=== PATIENT | female | born 1975 | race Caucasian/White ===

== ENCOUNTER → 2017-01-14 | Outpatient (CLI) | payer OTHER, MEDICAID ==
[~2017-01-14] MED LIST: ONDANSETRON HCL4 M2 PO; XANAX1 MG PO; ZOFRAN4 MG PO
[2017-01-14 16:48] LABS: ABSOLUTE BASOPHILS 0.1 thou/uL (0.0-0.2); ABSOLUTE LYMPHOCYTES 1.4 thou/uL (0.8-5.3); ABSOLUTE MONOCYTES 0.4 thou/uL (0.0-1.2); ABSOLUTE NEUTROPHILS 3.1 thou/uL (1.6-8.1); BASOPHILS 2.1 %; EOSINOPHILS 0.3 %; HEMATOCRIT 40.8 % (37.0-47.0); HEMOGLOBIN 14.1 gm/dL (12.0-15.0); LYMPHOCYTES 27.5 %; MCH 36.9 pg (26.0-34.0); MCHC 34.5 g/dL (28.0-37.0); MCV 106.9 fL (80.0-100.0); MONOCYTES 8.7 %; MPV 7.2 fl. (7.2-11.1); NUCLEATED RBCS 0 /100WBC; PLATELET COUNT* 131 thou/uL (150-400); POLYS 61.4 %; RBC 3.82 mil/uL (4.20-5.00); RDW-CV 13.3 % (10.5-14.5)
[2017-01-14 16:54] LABS: AMP/METHAMP Negative (Negative); BARBITURATES Negative (Negative); BENZODIAZEPINES POSITIVE (Negative); COCAINE Negative (Negative); METHADONE Negative (Negative); OPIATES Negative (Negative); PCP Negative (Negative); THC Negative (Negative)
[2017-01-14 17:10] LABS: ALBUMIN 3.9 g/dL (3.4-5.0); ALKALINE PHOSPHATASE 127 U/L (46-116); ANION GAP 13 mmol/L (7-16); BUN 5 mg/dL (7-18); CHLORIDE 100 mmol/L (98-107); CHOLESTEROL 292 mg/dL (<200); CO2 26 mmol/L (21-32); CREATININE 0.4 mg/dL (0.6-1.3); GLUCOSE 110 mg/dL (70-99); HDL CHOLESTEROL 187 mg/dL (>40); LDL CHOLESTEROL 37 mg/dL (<100); MAGNESIUM 2.1 mg/dL (1.8-2.4); PHOSPHORUS* 3.7 mg/dL (2.5-4.9); POTASSIUM 3.7 mmol/L (3.5-5.1); SGOT 119 U/L (15-37); SGPT 47 U/L (30-65); SODIUM 139 mmol/L (136-145); TC:HDL 1.6 Ratio (Not establshd); TOTAL BILIRUBIN 0.5 mg/dL (<0.1-1.0); TOTAL PROTEIN 7.3 g/dL (6.4-8.2); TRIGLYCERIDE 344 mg/dL (<150); VLDL 69 mg/dL (<40)
[2017-01-14 17:11] LABS: SERUM ASSESSMENT CLEAR
== END ==
LOC: M.LAB 16:10
PROVIDERS: Nurse Practitioner Family
DX: S09.90XD Unspecified injury of head, subsequent encounter (principal); F41.9 Anxiety disorder, unspecified; I10 Essential (primary) hypertension; R25.1 Tremor, unspecified; X58.XXXD Exposure to other specified factors, subsequent encounter

== ENCOUNTER 2017-02-14 12:58 | Emergency (ER) | payer OTHER, MEDICAID ==
[~2017-02-14] VITALS: Ht 170.2 cm; Wt 49.9 kg
[~2017-02-14 12:58] MED LIST changes: -ONDANSETRON HCL4 M2 PO
[2017-02-14] MEDS ORDERED: ONDANSETRON HCL4 M2 PO (13:28)
[2017-02-14 13:47] LABS: URINE COLOR YELLOW
[2017-02-14 13:48] LABS: URINE BILIRUBIN NEGATIVE (Negative); URINE BLOOD 2+ (Negative); URINE GLUCOSE-RANDOM NEGATIVE (Negative); URINE KETONES NEGATIVE (Negative); URINE LEUKOCYTES NEGATIVE (Negative); URINE NITRITE POSITIVE (Negative); URINE PROTEIN NEGATIVE (Negative); URINE UROBILINOGEN 0.2 E.U./dl (0.2-1.0)
[2017-02-14 13:49] LABS: URINE CLARITY SL CLOUDY
[2017-02-14 13:54] LABS: AMP/METHAMP Negative (Negative); BARBITURATES Negative (Negative); BENZODIAZEPINES Negative (Negative); COCAINE Negative (Negative); METHADONE Negative (Negative); OPIATES Negative (Negative); PCP Negative (Negative); THC Negative (Negative)
[2017-02-14 14:02] LABS: ABSOLUTE LYMPHOCYTES 0.8 thou/uL (0.8-5.3); ABSOLUTE MONOCYTES 0.3 thou/uL (0.0-1.2); ABSOLUTE NEUTROPHILS 1.7 thou/uL (1.6-8.1); BASOPHILS 1.4 %; EOSINOPHILS 0.7 %; HEMATOCRIT 39.7 % (37.0-47.0); HEMOGLOBIN 13.7 gm/dL (12.0-15.0); LYMPHOCYTES 29.7 %; MCH 37.1 pg (26.0-34.0); MCHC 34.5 g/dL (28.0-37.0); MCV 107.6 fL (80.0-100.0); MONOCYTES 9.8 %; MPV 7.6 fl. (7.2-11.1); NUCLEATED RBCS 0 /100WBC; PLATELET COUNT* 135 thou/uL (150-400); POLYS 58.4 %; RBC 3.69 mil/uL (4.20-5.00); RDW-CV 12.6 % (10.5-14.5); WBC 2.8 thou/uL (4.0-11.0)
[2017-02-14 14:08] LABS: ANION GAP 9 mmol/L (7-16); BUN 4 mg/dL (7-18); CHLORIDE 104 mmol/L (98-107); CO2 28 mmol/L (21-32); CREATININE 0.5 mg/dL (0.6-1.3); GLUCOSE 126 mg/dL (70-99); POTASSIUM 3.8 mmol/L (3.5-5.1); SODIUM 141 mmol/L (136-145)
[2017-02-14 14:15] LABS: ALBUMIN 3.5 g/dL (3.4-5.0); ALKALINE PHOSPHATASE 150 U/L (46-116); LIPASE 263 U/L (73-393); SGOT 211 U/L (15-37); SGPT 63 U/L (30-65); TOTAL BILIRUBIN 0.3 mg/dL (<0.1-1.0); TOTAL PROTEIN 7.3 g/dL (6.4-8.2); TROPONIN-I LEVEL <0.06 ng/mL (<0.06)
[2017-02-14 14:35] VITALS: BP 123/87
[2017-02-14 14:39] LABS: BACTERIA >30 Many /HPF (None Seen); CASTS None Seen /LPF (None Seen); CRYSTALS None Seen /LPF (None Seen); SQUAMOUS 4-10 Moderate /LPF (0-3); URINE RBC 0-2 Rare /HPF (0-2); URINE WBC 0-5 Rare /HPF (0-5)
== END 2017-02-14 15:07 | disposition home or self-care (01) ==
LOC: M.ERS 12:58
PROVIDERS: Physician Assistant
DX: F10.920 Alcohol use, unspecified with intoxication, uncomplicated (principal); D72.819 Decreased white blood cell count, unspecified; R11.2 Nausea with vomiting, unspecified; F41.9 Anxiety disorder, unspecified; Z88.0 Allergy status to penicillin

== ENCOUNTER → 2018-06-25 | Outpatient (CLI) | payer OTHER, MEDICAID ==
[~2018-06-25] MED LIST changes: +ONDANSETRON HCL4 M2 PO
== END ==
LOC: M.RAD 10:11
DX: M47.812 Spondylosis without myelopathy or radiculopathy, cervical region (principal); M41.84 Other forms of scoliosis, thoracic region; M48.07 Spinal stenosis, lumbosacral region; M79.641 Pain in right hand

== ENCOUNTER 2018-10-09 04:54 | Emergency (ER) | payer OTHER, MEDICAID ==
[~2018-10-09] VITALS: Ht 170.2 cm; Wt 57.1 kg
[2018-10-09 05:19] LABS: URINE BILIRUBIN NEGATIVE (Negative); URINE BLOOD 3+ (Negative); URINE CLARITY CLEAR; URINE COLOR YELLOW; URINE GLUCOSE-RANDOM NEGATIVE (Negative); URINE KETONES NEGATIVE (Negative); URINE LEUKOCYTES-REFLEX NEGATIVE (Negative); URINE NITRITE-REFLEX NEGATIVE (Negative); URINE PROTEIN NEGATIVE (Negative); URINE SPECIFIC GRAVITY <= 1.005 (1.005-1.030); URINE UROBILINOGEN 0.2 E.U./dl (0.2-1.0)
[2018-10-09 05:26] LABS: AMP/METHAMP Negative (Negative); BARBITURATES Negative (Negative); BENZODIAZEPINES Negative (Negative); COCAINE Negative (Negative); METHADONE Negative (Negative); OPIATES Negative (Negative); PCP Negative (Negative); THC Negative (Negative)
[2018-10-09 05:34] LABS: BACTERIA-REFLEX 1-9 Few /HPF (None Seen); CASTS None Seen /LPF (None Seen); CRYSTALS None Seen /LPF (None Seen); MUCUS 4-6 Moderate strn/LPF (None Seen); SQUAMOUS 4-10 Moderate /LPF (0-3); URINE RBC 3-10 Few /HPF (0-2); URINE WBC-REFLEX 0-5 Rare /HPF (0-5)
[2018-10-09 05:39] LABS: ABSOLUTE BASOPHILS 0.1 thou/uL (0.0-0.2); ABSOLUTE LYMPHOCYTES 1.1 thou/uL (0.8-5.3); ABSOLUTE MONOCYTES 0.4 thou/uL (0.0-1.2); ABSOLUTE NEUTROPHILS 0.8 thou/uL (1.6-8.1); EOSINOPHILS 1.6 %; HEMATOCRIT 35.5 % (37.0-47.0); HEMOGLOBIN 12.2 gm/dL (12.0-15.0); LYMPHOCYTES 47.1 %; MCH 37.8 pg (26.0-34.0); MCHC 34.4 g/dL (28.0-37.0); MCV 109.8 fL (80.0-100.0); MONOCYTES 15.7 %; MPV 7.2 fl. (7.2-11.1); NUCLEATED RBCS 0 /100WBC; PLATELET COUNT* 103 thou/uL (150-400); POLYS 32.6 %; RBC 3.23 mil/uL (4.20-5.00); RDW-CV 12.8 % (10.5-14.5); WBC 2.4 thou/uL (4.0-11.0)
[2018-10-09 05:47] LABS: CALCIUM 7.9 mg/dL (8.5-10.1); CREATININE 0.4 mg/dL (0.6-1.3); POTASSIUM 3.9 mmol/L (3.5-5.1)
[2018-10-09 05:51] LABS: ALBUMIN 3.1 g/dL (3.4-5.0); TOTAL BILIRUBIN 0.2 mg/dL (<0.1-1.0); TOTAL PROTEIN 6.4 g/dL (6.4-8.2)
[2018-10-09] MEDS ORDERED: NORCO 5-325 TA1 EAC1 PO (08:05)
[2018-10-09] MEDS ORDERED: ZOFRAN ODT4 MG DISSOLVE (08:05)
[2018-10-09 08:17] VITALS: BP 107/79
== END 2018-10-09 08:17 | disposition home or self-care (01) ==
LOC: M.ERS 04:54
PROVIDERS: Emergency Medicine
DX: F10.129 Alcohol abuse with intoxication, unspecified (principal); Y90.8 Blood alcohol level of 240 mg/100 ml or more; R10.31 Right lower quadrant pain; R11.2 Nausea with vomiting, unspecified; F41.9 Anxiety disorder, unspecified; Z98.890 Other specified postprocedural states; Z88.0 Allergy status to penicillin; Z79.899 Other long term (current) drug therapy

== ENCOUNTER 2018-10-22 15:13 | Emergency (ER) | payer OTHER, MEDICAID ==
[~2018-10-22] VITALS: Ht 170.2 cm; Wt 55.8 kg
[~2018-10-22 15:13] MED LIST changes: +NORCO 5-325 TA1 EAC1 PO; +ZOFRAN ODT4 MG DISSOLVE
[2018-10-22 16:01] LABS: ABSOLUTE BASOPHILS 0.1 thou/uL (0.0-0.2); ABSOLUTE LYMPHOCYTES 0.9 thou/uL (0.8-5.3); ABSOLUTE MONOCYTES 0.5 thou/uL (0.0-1.2); ABSOLUTE NEUTROPHILS 4.3 thou/uL (1.6-8.1); BASOPHILS 1.4 %; EOSINOPHILS 0.5 %; HEMATOCRIT 37.9 % (37.0-47.0); HEMOGLOBIN 12.8 gm/dL (12.0-15.0); LYMPHOCYTES 15.7 %; MCH 37.8 pg (26.0-34.0); MCHC 33.8 g/dL (28.0-37.0); MCV 111.8 fL (80.0-100.0); MPV 7.7 fl. (7.2-11.1); NUCLEATED RBCS 0 /100WBC; PLATELET COUNT* 167 thou/uL (150-400); POLYS 74.4 %; RBC 3.39 mil/uL (4.20-5.00); RDW-CV 12.9 % (10.5-14.5); WBC 5.8 thou/uL (4.0-11.0)
[2018-10-22 16:10] LABS: CREATININE 0.3 mg/dL (0.6-1.3); POTASSIUM 3.9 mmol/L (3.5-5.1)
[2018-10-22 16:11] LABS: APTT 27.7 Seconds (25.0-31.3)
[2018-10-22 16:14] LABS: ALBUMIN 3.6 g/dL (3.4-5.0); TOTAL BILIRUBIN 0.6 mg/dL (<0.1-1.0); TOTAL PROTEIN 7.4 g/dL (6.4-8.2)
[2018-10-22 16:14] LABS: URINE BILIRUBIN NEGATIVE (Negative); URINE BLOOD NEGATIVE (Negative); URINE CLARITY CLEAR; URINE COLOR YELLOW; URINE GLUCOSE-RANDOM NEGATIVE (Negative); URINE KETONES NEGATIVE (Negative); URINE LEUKOCYTES-REFLEX NEGATIVE (Negative); URINE NITRITE-REFLEX NEGATIVE (Negative); URINE PROTEIN NEGATIVE (Negative); URINE SPECIFIC GRAVITY <= 1.005 (1.005-1.030); URINE UROBILINOGEN 0.2 E.U./dl (0.2-1.0)
[2018-10-22 16:25] LABS: AMP/METHAMP Negative (Negative); BARBITURATES Negative (Negative); BENZODIAZEPINES Negative (Negative); COCAINE Negative (Negative); METHADONE Negative (Negative); OPIATES Negative (Negative); PCP Negative (Negative); THC Negative (Negative)
[2018-10-22] MEDS ORDERED: NABUMETONE 750750 M1 PO (16:41)
[2018-10-22] MEDS ORDERED: ONDANSETRON HCL4 M2 PO (16:43)
[2018-10-22 16:46] LABS: PLATELET ESTIMATE ADEQUATE
[2018-10-22 16:47] LABS: MACROCYTES 1+
[2018-10-22 18:18] VITALS: BP 109/72
== END 2018-10-22 18:18 | disposition home or self-care (01) ==
LOC: M.ERS 15:13
PROVIDERS: Nurse Practitioner Family
DX: S30.1XXA Contusion of abdominal wall, initial encounter (principal); R11.2 Nausea with vomiting, unspecified; F10.20 Alcohol dependence, uncomplicated; Y90.6 Blood alcohol level of 120-199 mg/100 ml; F41.9 Anxiety disorder, unspecified; F17.210 Nicotine dependence, cigarettes, uncomplicated; Z98.890 Other specified postprocedural states; Z79.899 Other long term (current) drug therapy; Z88.0 Allergy status to penicillin; X58.XXXA Exposure to other specified factors, initial encounter; Y93.89 Activity, other specified; Y92.89 Other specified places as the place of occurrence of the external cause; Y99.8 Other external cause status

== ENCOUNTER 2019-03-26 12:50 | Emergency (ER) | payer OTHER, MEDICAID ==
[~2019-03-26] VITALS: Ht 160 cm; Wt 56.7 kg
[~2019-03-26 12:50] MED LIST changes: +NABUMETONE 750750 M1 PO
[2019-03-26 13:15] LABS: URINE BILIRUBIN NEGATIVE (Negative); URINE BLOOD 3+ (Negative); URINE CLARITY CLEAR; URINE COLOR YELLOW; URINE GLUCOSE-RANDOM NEGATIVE (Negative); URINE KETONES NEGATIVE (Negative); URINE LEUKOCYTES-REFLEX NEGATIVE (Negative); URINE NITRITE-REFLEX NEGATIVE (Negative); URINE PROTEIN NEGATIVE (Negative); URINE SPECIFIC GRAVITY >= 1.030 (1.005-1.030); URINE UROBILINOGEN 0.2 E.U./dl (0.2-1.0)
[2019-03-26 13:22] LABS: AMP/METHAMP Negative (Negative); BARBITURATES Negative (Negative); BENZODIAZEPINES Negative (Negative); COCAINE Negative (Negative); METHADONE Negative (Negative); OPIATES Negative (Negative); PCP Negative (Negative); THC Negative (Negative)
[2019-03-26 13:24] LABS: HEMOGLOBIN 13.5 gm/dL (12.0-15.0)
[2019-03-26 13:26] LABS: ABSOLUTE LYMPHOCYTES 1.2 thou/uL (0.8-5.3); ABSOLUTE MONOCYTES 0.4 thou/uL (0.0-1.2); ABSOLUTE NEUTROPHILS 5.3 thou/uL (1.6-8.1); BASOPHILS 0.6 %; EOSINOPHILS 0.6 %; HEMATOCRIT 38.2 % (37.0-47.0); MCH 36.8 pg (26.0-34.0); MCHC 35.2 g/dL (28.0-37.0); MCV 104.6 fL (80.0-100.0); MONOCYTES 5.4 %; MPV 7.4 fl. (7.2-11.1); NUCLEATED RBCS 0 /100WBC; PLATELET COUNT* 161 thou/uL (150-400); POLYS 76.4 %; RBC 3.66 mil/uL (4.20-5.00); RDW-CV 12.5 % (10.5-14.5)
[2019-03-26 13:30] LABS: BACTERIA-REFLEX 1-9 Few /HPF (None Seen); SQUAMOUS 4-10 Moderate /LPF (0-3); URINE RBC 3-10 Few /HPF (0-2); URINE WBC-REFLEX 0-5 Rare /HPF (0-5)
[2019-03-26 13:31] LABS: CASTS None Seen /LPF (None Seen); CRYSTALS None Seen /LPF (None Seen); MUCUS None Seen strn/LPF (None Seen)
[2019-03-26 13:36] LABS: CALCIUM 8.5 mg/dL (8.5-10.1); CREATININE 0.6 mg/dL (0.6-1.3); POTASSIUM 4.1 mmol/L (3.5-5.1)
[2019-03-26 13:37] LABS: ALBUMIN 3.7 g/dL (3.4-5.0); TOTAL BILIRUBIN 0.5 mg/dL (<0.1-1.0); TOTAL PROTEIN 7.7 g/dL (6.4-8.2)
[2019-03-26 14:22] VITALS: BP 150/76
== END 2019-03-26 14:22 | disposition home or self-care (01) ==
LOC: M.ERS 12:50
PROVIDERS: Physician Assistant
DX: R39.15 Urgency of urination (principal); Z88.0 Allergy status to penicillin; Z98.890 Other specified postprocedural states; Z79.899 Other long term (current) drug therapy

== ENCOUNTER → 2019-08-08 | Outpatient (CLI) | payer OTHER, MEDICAID | LOC: M.ULTRA 10:53 | PROVIDERS: ATTEND Nurse Practitioner Adult Health | DX: K76.0 Fatty (change of) liver, not elsewhere classified (principal); R16.0 Hepatomegaly, not elsewhere classified; R79.89 Other specified abnormal findings of blood chemistry ==

== ENCOUNTER 2020-05-07 16:51 | Emergency (ER) | payer OTHER, MEDICAID ==
[~2020-05-07] VITALS: Ht 170.2 cm; Wt 54.4 kg
[2020-05-07] MEDS ORDERED: NAPROSYN500 MG PO (18:24)
[2020-05-07] MEDS ORDERED: MECLIZINE HCL25 M1 PO (18:25)
[2020-05-07] MEDS ORDERED: MEDROLDOSEPACK PO (18:26)
[2020-05-07 18:44] VITALS: BP 115/60
== END 2020-05-07 18:45 | disposition home or self-care (01) ==
LOC: M.ERS 16:51
DX: R51.9 Headache, unspecified (principal); M54.2 Cervicalgia; M54.5 Low back pain; R42 Dizziness and giddiness; F41.9 Anxiety disorder, unspecified; Z98.890 Other specified postprocedural states; Z96.22 Myringotomy tube(s) status; Z88.0 Allergy status to penicillin; W19.XXXA Unspecified fall, initial encounter; Y93.89 Activity, other specified; Y92.89 Other specified places as the place of occurrence of the external cause; Y99.8 Other external cause status

== ENCOUNTER 2020-07-24 14:12 | Emergency (ER) | payer OTHER, MEDICAID ==
[~2020-07-24] VITALS: Ht 170.2 cm; Wt 57.1 kg
[~2020-07-24 14:12] MED LIST changes: +MECLIZINE HCL25 M1 PO; +MEDROLDOSEPACK PO; +NAPROSYN500 MG PO
[2020-07-24] MEDS ORDERED: KLONOPIN0.5 MG PO (14:39)
[2020-07-24 15:23] LABS: HEMATOCRIT 37.9 % (37.0-47.0); HEMOGLOBIN 13.6 gm/dL (12.0-15.0); MCH 38.9 pg (26.0-34.0); MCHC 35.8 g/dL (28.0-37.0); MCV 108.5 fL (80.0-100.0); MPV 7.7 fl. (7.2-11.1); RBC 3.5 mil/uL (4.20-5.00); RDW-CV 12.3 % (10.5-14.5); WBC 3.9 thou/uL (4.0-11.0)
[2020-07-24 15:33] LABS: CREATININE 0.5 mg/dL (0.6-1.3); POTASSIUM 4.1 mmol/L (3.5-5.1)
[2020-07-24 15:38] LABS: ALBUMIN 3.9 g/dL (3.4-5.0); TOTAL BILIRUBIN 0.6 mg/dL (<0.1-1.0); TOTAL PROTEIN 7.2 g/dL (6.4-8.2)
[2020-07-24] MEDS ORDERED: MECLIZINE HCL25 M1 PO (16:12)
[2020-07-24] MEDS ORDERED: FLEXERIL PO (16:12)
[2020-07-24 16:34] VITALS: BP 140/96
== END 2020-07-24 16:35 | disposition home or self-care (01) ==
LOC: M.ERS 14:12
PROVIDERS: Emergency Medicine Emergency Medical Services
DX: S20.212A Contusion of left front wall of thorax, initial encounter (principal); F17.210 Nicotine dependence, cigarettes, uncomplicated; Z88.0 Allergy status to penicillin; W18.39XA Other fall on same level, initial encounter; Y93.89 Activity, other specified; Y92.89 Other specified places as the place of occurrence of the external cause; Y99.8 Other external cause status